=== PATIENT | female | born 2000 | race American Indian/Alaskan Native ===

== ENCOUNTER 2019-07-26 00:31 | Emergency (ER) | payer SELFPAY ==
[2019-07-26 06:00] LABS: Bacteria,Urine 4+ /HPF (Negative); Mucus,Urine FEW /HPF
[2019-07-26 06:29] LABS: Bilirubin,Urine Negative (Negative); Color,Urine Yellow (Yellow)
[2019-07-26 06:30] LABS: Blood,Urine Negative (Negative); Protein,Urine <15 mg/dL mg/dL (Negative)
--- NOTE | 2019-07-26 07:21 | Emergency Department Report ---
ED Female HPI - General Chief complaint: Urogenital-Female Stated complaint: POSS KIDNEY INFECTION Time Seen by Provider: 07/26/19 07:12 Source: patient Mode of arrival: Ambulatory Limitations: No Limitations - History of Present Illness Initial comments: 19 yo female c/o right flank pain x 4-5 days. Denies fever nausea, vomiting, vaginal discharge, and burning with urination. Denies PMH -: days(s) (4) Severity scale (0 -10): 5 Quality: aching Improves with: none Worsens with: none Are you Now?: No Associated Symptoms: denies: vaginal discharge, vaginal bleeding, abdominal pain, nausea/vomiting, fever/chills, headaches, loss of appetite, dysuria, hematuria, rash, shortness of breath, syncope, weakness - Related Data Previous Rx's Medication Instructions Recorded Last Taken Type cephALEXin [Keflex] 500 mg PO Q12HR 7 Days #14 cap 07/26/19 Unknown Rx Allergies Allergy/AdvReac Type Severity Reaction Status Date / Time No Known Allergies Allergy Unverified 07/26/19 02:58 ED Review of Systems ROS: Stated complaint: POSS KIDNEY INFECTION Other details as noted in HPI Comment: All other systems reviewed and negative Constitutional: denies: no symptoms reported Respiratory: denies: no symptoms reported Endocrine: denies: no symptoms reported Gastrointestinal: denies: nausea, vomiting Genitourinary: other (right flank pain ) Skin: denies: lesions Psychiatric: denies: anxiety ED Past Medical Hx - Past Medical History Previous Medical History?: No - Surgical History Past Surgical History?: No - Social History Smoking Status: Current Every Day Smoker Substance Use Type: None, Alcohol - Medications Home Medications: Home Medications Medication Instructions Recorded Confirmed Last Taken Type cephALEXin [Keflex] 500 mg PO Q12HR 7 Days #14 cap 07/26/19 Unknown Rx ED Physical Exam - General Limitations: No Limitations General appearance: alert - Head Head exam: Present: atraumatic - Eye Eye exam: Present: normal appearance - ENT ENT exam: Present: normal exam - Neck Neck exam: Present: normal inspection - Respiratory Respiratory exam: Present: normal lung sounds bilaterally - Cardiovascular Cardiovascular Exam: Present: regular rate, normal rhythm, normal heart sounds - GI/Abdominal GI/Abdominal exam: Present: soft. Absent: distended, tenderness, guarding, hypoactive bowel sounds ED Course Vital Signs 07/26/19 07/26/19 07/26/19 00:55 02:54 07:32 Temperature 100.6 F H 100.6 F H 101.8 F H Pulse Rate 126 H 125 H 108 H Respiratory 18 18 20 Rate Blood Pressure 117/72 117/72 Blood Pressure 118/64 [Right] O2 Sat by Pulse 98 100 100 Oximetry 07/26/19 07/26/19 07:35 09:33 Temperature 98.7 F Pulse Rate 86 Respiratory 20 18 Rate Blood Pressure Blood Pressure [Right] O2 Sat by Pulse 99 Oximetry ED Medical Decision Making - Medical Decision Making 19 yo female well appearing. Urine + for UTI. Physical exam wnL pt informed of her diagnosis of UTI instruct to take antibiotic entirely increased oral intake advil or tylenol for pain Return to the ER for ongoing fever and worsening symptoms. Critical care attestation.: If time is entered above; I have spent that time in minutes in the direct care of this critically ill patient, excluding procedure time. ED Disposition Clinical Impression: UTI (urinary tract infection) Qualifiers: Urinary tract infection type: acute cystitis Hematuria presence: with hematuria Qualified Code(s): N30.01 - Acute cystitis with hematuria Disposition: TO HOME OR SELFCARE Is pt being admited?: No Does the pt Need Aspirin: No Condition: Stable Instructions: Urinary Tract Infection in Women (ED) Additional Instructions: Start antibiotics today as soon as possible. Drink 10-12 cups of water daily. Take advil or tylenol for fever and pain as directed by package insert. IF you have no improvement increasing pain and fever return to the ER. Otherwise follow up with your doctor or [facility] in 3-5 days . Prescriptions: cephALEXin [Keflex] 500 mg PO Q12HR 7 Days #14 cap Referrals: PRIMARY CARE [Primary Care Provider] - 3-5 Days Time of Disposition: 09:28
[2019-07-26] MEDS ORDERED: ACETAMINOPHEN 325 MG TAB PO ONE (07:24)
[2019-07-26 07:33] VITALS: BP 118/64
[2019-07-26 09:28] LABS: HCG Qualitative,Urine Negative (Negative)
== END 2019-07-26 09:34 | disposition home or self-care (01) ==
LOC: ED 00:31
DX: N39.0 Urinary tract infection, site not specified (principal); F17.200 Nicotine dependence, unspecified, uncomplicated
CPT/HCPCS: 81001; 81025; 87076; 87086; 87186